=== PATIENT | female | born 1965 | race Caucasian/White ===

== ENCOUNTER 2018-07-29 15:16 | Outpatient (CLI) | payer BC ==
--- NOTE | 2018-07-29 18:34 | BD ---
DEXA BONE DENSITOMETRY: (Dual energy X-ray Absorptiometry) DATE: 07/29/18 HISTORY: 53-year-old postmenopausal white female for baseline, age-related, osteoporosis screening examination . Height: 66. Weight: 190 lbs. Age of menopause: 51 years. COMPARISON: None available. FINDINGS: The bone mineral density (BMD) is given in grams per square centimeter (g/cm2): LUMBAR SPINE: BMD(g/cm2) T-score Z-score L1: 0.891 -0.9 0.0 L2: 0.874 -1.4 -0.3 L3: 0.942 -1.2 -0.2 L4: 0.924 -1.2 -0.1 Total: 0.910 -1.2 -0.2 HIP: Femoral neck: 0.796 -0.5 0.6 Total: 1.063 1.0 1.7 FRAX WHO Fracture Risk Assessment Tool: 10 Year Fracture Risk * Major osteoporotic fracture: 9.3% Hip fracture: 0.3% Reported Risk Factors: [place](), Neck BMD=0.796 BMI=30.7, and previous fracture. * Fracture probability is calculated for an untreated patient. Fracture probability may be lower if the patient has received treatment. IMPRESSION: 1. The mean bone mineral density of the lumbar spine is osteopenic. Fracture risk is increased. 2. The bone mineral density of the femoral neck is normal. Fracture risk is not increased. AMIRA Obrien
== END 2018-07-29 15:17 | disposition home or self-care (01) ==
LOC: BICMAMMO 15:16
PROVIDERS: ATTEND Family Medicine
DX: Z12.31 Encounter for screening mammogram for malignant neoplasm of breast (principal); Z13.820 Encounter for screening for osteoporosis; M85.88 Other specified disorders of bone density and structure, other site; R92.1 Mammographic calcification found on diagnostic imaging of breast; Z80.3 Family history of malignant neoplasm of breast
CPT/HCPCS: 77063; 77067; 77080